=== PATIENT | female | born 1960 | race Caucasian/White ===

== ENCOUNTER 2019-07-16 00:59 | Emergency (ER) | payer BC ==
[~2019-07-16] VITALS: Ht 160 cm; Wt 81.6 kg
[2019-07-16 01:16] VITALS: BP_SYST 155
--- NOTE | 2019-07-16 01:16 | NUR ---
Patient to ER bed 2 to gown for evaluation. Side rails up. Report given to STEPHANIE Mackey.
--- NOTE | 2019-07-16 01:16 | NUR ---
Pt c/o bug bite to RUE x 1 day. Redness and swelling noted to medial RUE, tender to touch, skin intact. Pt states " I felt a stinger and I think it may have been a bee or wasp." Denies SOB, airway patent, even and non-labored respirations.
--- NOTE | 2019-07-16 01:22 | NUR ---
ER Dr. Boyer at bedside examining patient.
[2019-07-16] MEDS ORDERED: cefTRIAXone 1 GM VIAL IM ONE (01:30)
[2019-07-16] MEDS ORDERED: LIDOCAINE 1% 10 MG/ML, 20 ML MDV INJ ONE (01:45)
[2019-07-16] MEDS ORDERED: LIDOCAINE 1%, 20 ML MDV 20 ML ONE (01:49)
[2019-07-16 02:15] VITALS: BP_SYST 128
--- NOTE | 2019-07-16 02:15 | NUR ---
Patient given written and verbal discharge instructions and verbalizes understanding. ER MD discussed with patient the results and treatment provided. Patient in stable condition. ID arm band removed. Rx of Keflex given. Patient educated on pain management and to follow up with PMD. Pain Scale 1/10. Opportunity for questions provided and answered. Medication side effect fact sheet provided.
== END 2019-07-16 02:15 | disposition home or self-care (01) ==
LOC: SED 00:59
DX: S40.861A Insect bite (nonvenomous) of right upper arm, initial encounter (principal); L03.113 Cellulitis of right upper limb; W57.XXXA Bitten or stung by nonvenomous insect and other nonvenomous arthropods, initial encounter; Y93.89 Activity, other specified; Y92.89 Other specified places as the place of occurrence of the external cause; Y99.8 Other external cause status
CPT/HCPCS: 96372; 99283; J0696; J2001